=== PATIENT | male | born 1945 | race Caucasian/White ===

== ENCOUNTER 2017-09-18 15:04 | Emergency (ER) | payer MEDICARE, OTHER ==
[2017-09-18 16:37] LABS: Hematocrit 44.9 % (35.5-45.6); Hemoglobin 15.2 gm/dl (11.8-15.2); Mean Corpuscular HGB Conc 34 % (32-34); Mean Corpuscular Hemoglobin 29 pg (28-32); Mean Corpuscular Volume 85 fl (84-94); Platelet Count 159 K/mm3 (140-440); Red Blood Count 5.28 M/mm3 (3.65-5.03); Red Cell Distribution Width 16.5 % (13.2-15.2)
[2017-09-18 16:55] LABS: Alanine Aminotransferase 28 units/L (7-56); Albumin 4.1 g/dL (3.9-5); BUN/Creatinine Ratio 22; Blood Urea Nitrogen 24 mg/dL (9-20); Calcium 8.5 mg/dL (8.4-10.2); Hemolysis Index 8
[2017-09-18 17:22] LABS: Band Neutrophils # (Manual) 0.5 K/mm3; Basophils % (Manual) 0 % (0.0-1.8); Eosinophils % (Manual) 0 % (0.0-4.3); Total Cells Counted 100
[2017-09-18 17:23] LABS: Platelet Estimate Consistent w Auto; RBC Morphology Normal
[2017-09-18] MEDS ORDERED: NACL 0.9% 1000 ML 1,000 ML ONE (18:31)
[2017-09-18 18:40] LABS: Bilirubin,Urine NEG (Negative); Blood,Urine NEG (Negative); Color,Urine Yellow (Yellow); Mucus,Urine 1+ /HPF; Protein,Urine <15 mg/dL mg/dL (Negative); Urobilinogen,Urine < 2.0 mg/dL (<2.0); WBC,Urine < 1.0 /HPF (0.0-6.0)
[2017-09-18] MEDS ORDERED: ZOFRAN IV ONE (18:52)
[2017-09-18] MEDS ORDERED: ZOFRAN ONE (18:55)
--- NOTE | 2017-09-18 19:06 | Emergency Department Report ---
ED General Adult HPI - General Chief complaint: Abdominal Pain Stated complaint: ABD PAIN/UPPER GASTRIC Time Seen by Provider: 09/18/17 18:36 Source: patient, EMS Mode of arrival: Ambulatory Limitations: No Limitations - History of Present Illness Initial comments: Patient presents to emergency department for nausea,vomiting and diarrhea that occurred at 2 AM this morning. Patient states that it has been persistent since that time. Patient states around 11 PM last night he ate some chili from [employer] and thinks that is the cause of his symptoms. Patient describes his abdominal pain is burning and denies flank pain. Patient has no other symptoms. -: Sudden, days(s) (1) Location: abdomen Radiation: non-radiation Severity scale (0 -10): 2 Quality: burning Consistency: constant Improves with: none Worsens with: none Associated Symptoms: nausea/vomiting, other (diarrhea) Treatments Prior to Arrival: none - Related Data Previous Rx's Medication Instructions Recorded Last Taken Type Ondansetron [Zofran Odt] 4 mg PO Q6HR PRN #20 tab.rapdis 09/18/17 Unknown Rx Allergies Allergy/AdvReac Type Severity Reaction Status Date / Time No Known Allergies Allergy Unverified 09/18/17 15:43 ED Review of Systems ROS: Stated complaint: ABD PAIN/UPPER GASTRIC Other details as noted in HPI Constitutional: denies: chills, fever Eyes: denies: eye pain, eye discharge, vision change ENT: denies: ear pain, throat pain Respiratory: denies: cough, shortness of breath, wheezing Cardiovascular: denies: chest pain, palpitations Endocrine: no symptoms reported Gastrointestinal: denies: abdominal pain, nausea, diarrhea Genitourinary: denies: urgency, dysuria Musculoskeletal: denies: back pain, joint swelling, arthralgia Skin: denies: rash, lesions Neurological: denies: headache, weakness, paresthesias Psychiatric: denies: anxiety, depression Hematological/Lymphatic: denies: easy bleeding, easy bruising ED Past Medical Hx - Past Medical History Previous Medical History?: Yes Hx Diabetes: Yes Hx GERD: Yes Additional medical history: Ulcers - Surgical History Past Surgical History?: Yes Additional Surgical History: esophageal surgery - Social History Smoking Status: Never Smoker - Medications Home Medications: Home Medications Medication Instructions Recorded Confirmed Last Taken Type Ondansetron [Zofran Odt] 4 mg PO Q6HR PRN #20 tab.rapdis 09/18/17 Unknown Rx ED Physical Exam - General Limitations: No Limitations General appearance: alert, in no apparent distress - Head Head exam: Present: atraumatic, normocephalic - Eye Eye exam: Present: normal appearance - ENT ENT exam: Present: mucous membranes moist - Neck Neck exam: Present: normal inspection - Respiratory Respiratory exam: Present: normal lung sounds bilaterally. Absent: respiratory distress - Cardiovascular Cardiovascular Exam: Present: regular rate, normal rhythm. Absent: systolic murmur, diastolic murmur, rubs, gallop - GI/Abdominal GI/Abdominal exam: Present: soft, normal bowel sounds. Absent: distended, tenderness, guarding, rebound - Rectal Rectal exam: Present: deferred - Extremities Exam Extremities exam: Present: normal inspection - Back Exam Back exam: Present: normal inspection - Neurological Exam Neurological exam: Present: alert, oriented X3 - Psychiatric Psychiatric exam: Present: normal affect, normal mood - Skin Skin exam: Present: warm, dry, intact, normal color. Absent: rash ED Course Vital Signs 09/18/17 09/18/17 09/18/17 15:06 15:41 16:20 Temperature 97.8 F Pulse Rate 74 100 H 93 H Respiratory 16 16 13 Rate Blood Pressure 128/78 O2 Sat by Pulse 100 96 Oximetry 09/18/17 09/18/17 09/18/17 16:30 17:00 17:30 Temperature Pulse Rate 93 H 96 H 91 H Respiratory 18 18 18 Rate Blood Pressure 129/82 113/73 118/76 O2 Sat by Pulse 96 95 96 Oximetry 09/18/17 18:00 Temperature Pulse Rate 96 H Respiratory 17 Rate Blood Pressure 127/81 O2 Sat by Pulse 96 Oximetry ED Medical Decision Making - Lab Data Result diagrams: 09/18/17 16:20 09/18/17 16:20 - Medical Decision Making Patient states years ago he had diabetes after having a [employer]-en-Y and losing weight the diabetes resolved Discussed results with patient. It was decided that the patient will follow up with his primary care physician in [place] upon his return on Thursday. At this time he states that he would prefer to try to lose weight again so that when he does not have to start metformin. Critical care attestation.: If time is entered above; I have spent that time in minutes in the direct care of this critically ill patient, excluding procedure time. ED Disposition Clinical Impression: Hyperglycemia, Nausea and vomiting, Diarrhea Disposition: DC-01 TO HOME OR SELFCARE Is pt being admited?: No Does the pt Need Aspirin: No Condition: Stable Instructions: Acute Diarrhea (ED), Acute Nausea and Vomiting (ED), Hyperglycemia, Non-Diabetic (ED), Diabetic Hyperglycemia (ED) Prescriptions: Ondansetron [Zofran Odt] 4 mg PO Q6HR PRN #20 tab.rapdis PRN Reason: Nausea Referrals: PRIMARY CARE, [Primary Care Provider] - 3-5 Days SOWMYA NERI MD [Staff Physician] - 3-5 Days Time of Disposition: 19:07
[2017-09-18 19:35] VITALS: BP 123/68
[2017-09-18] MEDS ORDERED: PROTONIX IV ONE (20:00)
== END 2017-09-18 19:35 | disposition home or self-care (01) ==
LOC: ED 15:04
DX: E11.65 Type 2 diabetes mellitus with hyperglycemia (principal); R11.2 Nausea with vomiting, unspecified; R19.7 Diarrhea, unspecified; K21.9 Gastro-esophageal reflux disease without esophagitis
CPT/HCPCS: 36415; 80053; 81001; 83690; 85007; 85025; 96374; 96375; 99283; J2405; J7030; C9113